=== PATIENT | female | born 1995 | race Caucasian/White ===

== ENCOUNTER 2017-06-14 22:21 | Emergency (ER) | payer BC ==
--- NOTE | 2017-06-14 23:02 | RAD ---
CHEST TWO VIEWS: History: Chest pain. Comparison: None. FINDINGS: Lungs are clear. No pneumothorax or effusion. Cardiac silhouette and mediastinal contours are within normal limits. IMPRESSION: No acute intrathoracic abnormality. POS: [facility]
[2017-06-15] MEDS ORDERED: Cyclobenzaprine 10 MG TAB ONE (01:57)
[2017-06-15] MEDS ORDERED: Ketorolac Tromethamine 60 MG/2 ML VIAL ONE (01:57)
--- NOTE | 2017-07-20 14:24 | EKG ---
Test Reason : CHEST PAIN Blood Pressure : / mmHG Vent. Rate : 071 BPM Atrial Rate : 071 BPM P-R Int : 112 ms QRS Dur : 094 ms QT Int : 372 ms P-R-T Axes : 066 027 016 degrees QTc Int : 404 ms Normal sinus rhythm with sinus arrhythmia Possible Left atrial enlargement Borderline ECG T wave inversion III Confirmed by MERNA GONZALEZ D.O. ([id number]), movie editor ARIADNE BAIRD ([id number]) on 07/20/2017 2:24:26 PM Referred By: Confirmed By:MERNA GONZALEZ D.O.
== END 2017-06-15 02:43 | disposition home or self-care (01) ==
LOC: ERS 22:21
DX: T14.8XXA Other injury of unspecified body region, initial encounter (principal); R07.89 Other chest pain; X58.XXXA Exposure to other specified factors, initial encounter
CPT/HCPCS: 71020; 93005; 96372; J1885

== ENCOUNTER 2019-03-23 15:19 | Outpatient (CLI) | payer BC | END 2019-03-23 15:20 | disposition home or self-care (01) | LOC: CTENTCT 15:19 | PROVIDERS: ATTEND Otolaryngology Plastic Surgery within the Head & Neck | DX: J32.9 Chronic sinusitis, unspecified (principal) | CPT/HCPCS: 70486 ==

== ENCOUNTER 2019-08-21 11:44 | Emergency (ER) | payer BC ==
--- NOTE | 2019-08-21 13:23 | RAD ---
CHEST 2 VIEWS: DATE: 08/21/2019 Indication: History of chest pain and sore throat. COMPARISON: Prior exam dated 06/14/2017. FINDINGS: Lungs are clear. Heart size normal. No acute osseous abnormality is evident. IMPRESSION: No acute cardiopulmonary abnormality. POS: [facility]
[2019-08-21 13:33] LABS: #Basophils 0.1 thou/uL (0.0-0.2); #Eosinphils 0.1 thou/uL (0.0-0.7); #Lymphocytes 1.7 thou/uL (1.20-3.40); #Monocytes 0.5 thou/uL (0.11-0.59); #Neutrophils 3.5 thou/uL (1.40-6.50); %Basophils 1.1 % (0.0-1.0); %Lymphocytes 29.9 % (21.0-51.0); %Monocytes 8.2 % (0.0-10.0); %Neutrophils 59.9 % (42.0-75.0); Hemoglobin 14.7 g/dL (12.0-16.0); Mean Corpuscular HGB CONC 32.6 g/dL (32.0-36.0); Mean Corpuscular Hemoglobin 31.6 pg (27.0-31.0); Mean Corpuscular Volume 96.9 fL (78.0-98.0); Mean Platelet Volume 9.9 fL (7.4-10.4); Platelet Count 183 thou/uL (130-400); RBC Distribution Width 11.4 % (11.5-14.5); Red Blood Cell (RBC) Count 4.66 mill/uL (4.20-5.40); White Blood Cell (WBC) Count 5.8 thou/uL (4.8-10.8)
[2019-08-21 13:54] LABS: ALT (SGPT) 16 U/L (8-55); AST (SGOT) 17 U/L (5-34); Albumin 4.4 g/dL (3.5-5.0); Alkaline Phosphatase 80 U/L (40-110); Anion Gap 10 mmol/L (10-20); BUN (Urea Nitrogen) 8 mg/dL (7.0-18.7); Bilirubin, Total 0.4 mg/dL (0.2-1.2); Calc. Creatinine Clearance 0 mL/min (70-130); Carbon Dioxide 27 mmol/L (22-29); Chloride 104 mmol/L (98-107); Estimated GFR-MDRD 89; Globulin 2.7 g/dL (2.4-3.5); Glucose 86 mg/dL (70-105); Potassium 3.8 mmol/L (3.5-5.1); Protein, Total 7.1 g/dL (6.0-8.3); Sodium 137 mmol/L (136-145)
[2019-08-21 13:55] LABS: BHCG - Serum Negative (NEGATIVE); Pregs Control Background? CLEAR/WHITE (CLR/WHITE); Pregs Control Bar Appear? YES (CONTROL BAR)
== END 2019-08-21 15:08 | disposition home or self-care (01) ==
LOC: ERS 11:44
DX: K20.9 Esophagitis, unspecified (principal); R07.9 Chest pain, unspecified
CPT/HCPCS: 36415; 71046; 80053; 84484; 84703; 85025; 85379; 93005

== ENCOUNTER 2020-06-10 15:29 | Outpatient (CLI) | payer BC | END 2020-06-10 15:30 | disposition home or self-care (01) | LOC: CTENTCT 15:29 | PROVIDERS: ATTEND Otolaryngology Plastic Surgery within the Head & Neck | DX: J32.8 Other chronic sinusitis (principal) | CPT/HCPCS: 70486 ==